=== PATIENT | female | born 1995 | race Caucasian/White ===

== ENCOUNTER 2019-01-19 21:59 | Emergency (ER) | payer MEDICAID, OTHER ==
[~2019-01-19] VITALS: Ht 160 cm; Wt 83.5 kg
[2019-01-19] MEDS ORDERED: RT-ALBUTEROL SULF 2.5 MG/3 ML PRE-MIX VIAL INH STA (23:02)
--- NOTE | 2019-01-19 23:08 | ED Cough/URI ---
General Chief Complaint: Cough/Cold/Flu Symptoms Stated Complaint: COUGH /VOMITING Nursing Triage Note: Pt ambulates to Rm 10 with complaints of cough x 2 hrs. Pt states she took claritin because she thought it was allergies then started vomiting. Pt is 30 wks preg. Sepsis Screen: No Definite Risk Source: patient Exam Limitations: no limitations (AYESHA FISHER STUDENT) History of Present Illness Date Seen by Provider: Jan 19, 2019 Time Seen by Provider: 22:30 Initial Comments The patient is a WD/WN 23 y/o female who is here with a chief complaint of cough. She reports that the cough began 3 hrs ago and is non-productive. She is also experiencing nasal discharge and watery eyes which she attributes to the cough. The patient states that she has vomited 10-12 times due to prolonged coughing episodes. She is also complaining of headache which started shortly after the cough. She denies nausea, fever, or malaise. She has no known sick contacts recently. Timing/Duration: this evening Severity/Quality: mild, dry cough Associated Symptoms: nasal drainage (AYESHA FISHER STUDENT) Timing/Duration: this evening Severity/Quality: mild, dry cough Prior Episodes/Possible Cause: occasional episodes Associated Symptoms: fever/chills, nasal drainage, sore throat (BONILLA CHAMBERS MD) Allergies and Home Medications Allergies Coded Allergies: Sulfa (Sulfonamide Antibiotics) (Verified Allergy, Unknown, 01/19/19) Patient Home Medication List Home Medication List Reviewed: Yes (BONILLA CHAMBERS MD) Review of Systems Review of Systems Constitutional: No fever, No malaise EENTM: tearing; No blurred vision, No double vision Respiratory: cough, short of breath Cardiovascular: No chest pain, No palpitations Gastrointestinal: No nausea; vomiting (AYESHA FISHER STUDENT) Constitutional: see HPI Respiratory: see HPI Cardiovascular: no symptoms reported Gastrointestinal: no symptoms reported : Yes (BONILLA CHAMBERS MD) Past Ymxapzw-Dxilua-Moyrha Hx Past Med/Social Hx: Reviewed Nursing Past Med/Soc Hx (BONILLA CHAMBERS MD) Patient Social History Alcohol Use: Denies Use Recreational Drug Use: No Smoking Status: Never a Smoker 2nd Hand Smoke Exposure: No Recent Foreign Travel: No Contact w/Someone Who Travel: No Recent Infectious Disease Expo: No Recent Hopitalizations: No Physical Abuse: No Sexual Abuse: No Mistreated: No Fear: No (AYESHA FISHER [employer] STUDENT) Seasonal Allergies Seasonal Allergies: Yes (AYESHA FISHER [employer] [place]) Past Medical History Surgeries: Yes Gallbladder Respiratory: No Cardiac: No Neurological: No Genitourinary: No Gastrointestinal: No Musculoskeletal: No Endocrine: No HEENT: No Cancer: No Psychosocial: No Integumentary: No Blood Disorders: No (AYESHA FISHER [employer] STUDENT) Family Medical History Reviewed Nursing Family Hx (BONILLA CHAMBERS MD) No Pertinent Family Hx (BONILLA CHAMBERS MD) Physical Exam Vital Signs - First Documented 01/19/19 22:10 Temp 97.5 Pulse 91 Resp 20 B/P (MAP) 109/79 (89) Pulse Ox 97 O2 Delivery Room Air (BONILLA CHAMBERS MD) Capillary Refill : Less Than 3 Seconds (AYESHA FISHER STUDENT) Height: 5'3.00" Weight: 184lbs. oz. 83.532100uw; BMI Method:Stated General Appearance: WD/WN, no apparent distress HEENT: PERRL/EOMI, TMs normal, pharynx normal Respiratory: chest non-tender, lungs clear, normal breath sounds Cardiovascular: regular rate, rhythm, no edema, no murmur Neurologic/Psychiatric: alert, normal mood/affect, oriented x 3 Skin: normal color, warm/dry (AYESHA FISHER [employer] STUDENT) General Appearance: WD/WN, no apparent distress HEENT: PERRL/EOMI, pharynx normal, other (mild bilateral nasal congestion with clear rhinorrhea) Neck: full range of motion, supple Respiratory: lungs clear, normal breath sounds Cardiovascular: regular rate, rhythm, no edema, no murmur Neurologic/Psychiatric: alert, oriented x 3 Skin: normal color, warm/dry (BONILLA CHAMBERS MD) Progress/Results/Core Measures Suspected Sepsis Recent Fever Within 48 Hours: No Infection Criteria Present: None New/Unexplained Altered Menta: No Sepsis Screen: No Definite Risk SIRS Temperature:97.5 Pulse: 91 Respiratory Rate: 20 Blood Pressure 109 /79 Mean: 89 (AYESHA FISHER MED STUDENT) Results/Orders My Orders Orders - BONILLA CHAMBERS MD Albuterol Pre-Mix Nebs (Rt) (Proventil (01/19/19 23:02) Svn Small Volume Nebulizer (01/19/19 23:02) Rx-Albuterol Inhaler (Rx-Proair) (01/19/19 23:15) (BONILLA CHAMBERS MD) Medications Given in ED Current Medications Medications Dose Ordered Sig/Lizbet Route Start Time Stop Time Status Last Admin Dose Admin Albuterol Sulfate 2 PUFFS QID PRN IH 01/19/19 23:15 01/19/19 23:34 2 GM (BONILLA CHAMBERS MD) Vital Signs/I&O 01/19/19 01/19/19 01/19/19 22:10 22:23 23:39 Temp 97.5 Pulse 91 Resp 20 B/P (MAP) 109/79 (89) Pulse Ox 97 99 O2 Delivery Room Air Room Air Room Air (BONILLA CHAMBERS MD) Vital Signs/I&O Capillary Refill : Less Than 3 Seconds (AYESHA FISHER MED STUDENT) Blood Pressure Mean: 89 Progress Note : Time: 23:10 Progress Note The patient is resting comfortably in the exam room. She will be given an albuterol breathing treatment for possible asthma/allergy/viral uri. If olivier thing improves she will be discharged with an albuterol inhaler. (AYESHA FISHER STUDENT) Progress Note : Progress Note I have seen and evaluated the patient and agree with above except as indicated. Have directed the plan of care. Patient is here with shortness of breath tonight. Does have history of asthma as a child. She does not have an albuterol inhaler. She is new to the area and is establishing OB care. She is approximately 30 weeks . heart tones 138 by Doppler. Afebrile. Normotensive. Exam as above. We will get albuterol neb and give her albuterol inhaler to go. I did discuss with her regarding the need for follow-up and she has initiated the process to establish OB care. Discharge with return p recautions. Patient verbalize understanding instructions and agreement with plan. (BONILLA CHAMBERS MD) Departure Impression Primary Impression: Acute bronchitis Qualified Codes: J20.9 - Acute bronchitis, unspecified Disposition: HOME, SELF-CARE Condition: Improved Departure-Patient Inst. Decision time for Depature: 23:29 (BONILLA CHAMBERS MD) Referrals: NO,LOCAL PHYSICIAN (PCP/Family) Primary Care Physician Patient Instructions: Acute Bronchitis, Adult (DC) Add. Discharge Instructions: All discharge instructions reviewed with patient and/or family. Voiced understanding. Use albuterol inhaler 2 puffs every 4 hours as needed for wheezing or shortness of breath. You may take Tylenol/acetaminophen 1000 mg every 6 hours as needed for fever or pain. Follow-up with your assistant media buyer as soon as possible and continue process to establish OB care here. Return for worse pain, fever, vomi ting, weakness, breathing problems or other concerns as needed. AYESHA FISHER MED STUDENT Jan 19, 2019 23:08 BONILLA CHAMBERS MD Jan 19, 2019 23:30
[2019-01-19] MEDS ORDERED: RX-ALBUTEROL INHALER (PROAIR) 8.5 GM IH PRN (23:15)
[2019-01-20 00:10] VITALS: BP 116/82
== END 2019-01-20 00:10 | disposition home or self-care (01) ==
LOC: ER 22:02
DX: J20.9 Acute bronchitis, unspecified (principal); Z88.2 Allergy status to sulfonamides
CPT/HCPCS: 94640; 99283